=== PATIENT | male | born 1980 | race Two or more races ===

== ENCOUNTER 2023-10-22 11:08 | Outpatient (CLI) | payer SELFPAY | END 2023-10-22 23:59 | disposition home or self-care (01) | LOC: RAD 11:08 | PROVIDERS: ATTEND Family Medicine | DX: E04.1 Nontoxic single thyroid nodule (principal) | CPT/HCPCS: 76536 ==

== ENCOUNTER 2023-11-19 12:51 | Inpatient (IN) | payer MEDICAID, SELFPAY ==
[~2023-11-19] VITALS: Ht 162.6 cm; Wt 72.3 kg
[2023-11-19 13:13] LABS: BILIRUBIN,URINE NEGATIVE (Neg); CLARITY,URINE CLEAR (Clear); COLOR,URINE YELLOW (Yellow); GLUCOSE, URINE NEGATIVE (Neg); KETONES,URINE NEGATIVE (Neg); LEUKOCYTE ESTERASE ,URINE NEGATIVE (Neg); NITRITES, URINE NEGATIVE (Neg); OCCULT BLOOD,URINE NEGATIVE (Neg); PH,URINE 8.5 (4.8-8.0); PROTEIN,URINE NEGATIVE (Neg); UROBILINOGEN,URINE 0.2 E.U/dL (0.2-1.0)
[2023-11-19 13:19] LABS: UA COLLECTION TYPE CLN CATCH MIDSTREAM
[2023-11-19 13:29] LABS: BASOPHILS % (AUTO) 0.7 % (0-1); EOSINOPHILS # (AUTO) 0.2 X10'3 (0-0.9); HEMOGLOBIN 14.1 g/dl (14.0-17.9); LYMPHOCYTES # (AUTO) 2.6 X10'3 (1.1-4.8); LYMPHOCYTES % (AUTO) 40.2 % (21-51); MEAN CORPUSCULAR HEMOGLOBIN 29.9 PG (27.0-31.0); MEAN CORPUSCULAR HGB CONC 33.4 g/dL (33.0-36.5); NEUTROPHILS # (AUTO) 2.9 X10'3 (1.8-7.7)
[2023-11-19 13:31] LABS: EOSINOPHILS % (AUTO) 2.5 % (0-6); HEMATOCRIT 42.3 % (42.0-52.0); MEAN CORPUSCULAR VOLUME 89.4 FL (78-98); MEAN PLATELET VOLUME 11.4 FL (7.4-10.4); MONOCYTES # (AUTO) 0.8 X10'3 (0-0.9); MONOCYTES % (AUTO) 12.4 % (2-12); NEUTROPHILS % (AUTO) 44.2 % (42-75); PLATELET COUNT 176 X10'3 (140-440); RED BLOOD COUNT 4.73 X10'6 (4.70-6.10); RED CELL DISTRIBUTION WIDTH 14.3 % (11.5-14.5); WHITE BLOOD COUNT 6.5 X10'3 (4.5-11.0)
[2023-11-19 13:46] LABS: ALANINE AMINOTRANSFERASE 51 U/L (12-78); ALBUMIN/GLOBULIN RATIO 1.1 (1.1-1.5); ALKALINE PHOSPHATASE 81 IU/L (46-116); ANION GAP 6 (8-16); ASPARTATE AMINO TRANSFERASE 25 U/L (10-37); BILIRUBIN,TOTAL 0.5 MG/DL (0.1-1.0); BLOOD UREA NITROGEN 7 MG/DL (7-18); BUN/CREATININE RATIO 6.8 (10.0-20.0); CALCIUM 8.9 MG/DL (8.5-10.1); CHLORIDE 103 MMOL/L (99-107); CREATININE 1.03 MG/DL (0.60-1.10); GLUCOSE 93 MG/DL (70-104); LIPASE 46 U/L (16-77); POTASSIUM 3.5 MMOL/L (3.5-5.1); SODIUM 140 MMOL/L (135-145); TOTAL CARBON DIOXIDE 30.7 MMOL/L (24-32); TOTAL PROTEIN 7.7 G/DL (6.4-8.2); eCRCL 79 ML/MIN; eGFR 80 ML/MIN
[2023-11-19] MEDS ORDERED: iohexol 300mg/ml 100ml inj. ONE (15:13)
[2023-11-19] MEDS ORDERED: CLON-568 PO (16:41)
[2023-11-19] MEDS ORDERED: PARO20TA6 PO (16:41)
[2023-11-19] MEDS ORDERED: acetaminophen 325mg tablet PO PRN (17:25)
[2023-11-19] MEDS ORDERED: magnesium hydroxide 30ml (MOM) UD suspension PO PRN (17:25)
[2023-11-19] MEDS ORDERED: ondansetron/PF 4mg/2ml inj IV PRN (17:25)
[2023-11-19] MEDS ORDERED: potassium Cl 20 mEq SR tablet PO PRN ×2 (17:25)
[2023-11-19] MEDS ORDERED: mag hydrox/Alum hydrox/simeth 30ml oral suspension PO PRN (17:25)
[2023-11-19] MEDS: docusate sod 100mg capsule PO SCH (20:00)
[2023-11-19] MEDS: normal saline 1000ml 1,000 ML IV SCH (20:24)
[2023-11-19 21:00] VITALS: RESP 16; O2SAT 97
[2023-11-19 22:00] VITALS: BP 132/83; PULSE 60; RESP 16; TEMP 98.7; O2SAT 97
[2023-11-20] VITALS (22 sets, daily range): BP systolic 82–145; BP diastolic 41–97; PULSE 56–113; RESP 11–18; TEMP 98–98.9; O2SAT 95–100
[2023-11-20] MEDS: piperacillin/tazo 4.5gm/100ml 100 ML IV SCH (00:13)
[2023-11-20 06:29] LABS: BASOPHILS % (AUTO) 0.8 % (0-1); EOSINOPHILS # (AUTO) 0.2 X10'3 (0-0.9); EOSINOPHILS % (AUTO) 2.8 % (0-6); HEMATOCRIT 41.7 % (42.0-52.0); LYMPHOCYTES # (AUTO) 2.4 X10'3 (1.1-4.8); LYMPHOCYTES % (AUTO) 39.2 % (21-51); MEAN CORPUSCULAR HEMOGLOBIN 30.2 PG (27.0-31.0); MEAN CORPUSCULAR HGB CONC 33.7 g/dL (33.0-36.5); MEAN CORPUSCULAR VOLUME 89.7 FL (78-98); MEAN PLATELET VOLUME 10.8 FL (7.4-10.4); MONOCYTES # (AUTO) 0.7 X10'3 (0-0.9); MONOCYTES % (AUTO) 11.9 % (2-12); NEUTROPHILS # (AUTO) 2.7 X10'3 (1.8-7.7); NEUTROPHILS % (AUTO) 45.3 % (42-75); PLATELET COUNT 158 X10'3 (140-440); RED BLOOD COUNT 4.65 X10'6 (4.70-6.10); RED CELL DISTRIBUTION WIDTH 14.4 % (11.5-14.5)
[2023-11-20 06:36] LABS: APTT 26 SECONDS (22-32); INR 1.1 INR; PROTHROMBIN TIME 11.1 SECONDS (9.0-12.0)
[2023-11-20 07:01] LABS: ALANINE AMINOTRANSFERASE 45 U/L (12-78); ALBUMIN 3.7 G/DL (3.4-5.0); ALBUMIN/GLOBULIN RATIO 1.1 (1.1-1.5); ALKALINE PHOSPHATASE 68 IU/L (46-116); ANION GAP 6 (8-16); ASPARTATE AMINO TRANSFERASE 18 U/L (10-37); BLOOD UREA NITROGEN 10 MG/DL (7-18); BUN/CREATININE RATIO 7.6 (10.0-20.0); CALCIUM 8.8 MG/DL (8.5-10.1); CHLORIDE 104 MMOL/L (99-107); CREATININE 1.31 MG/DL (0.60-1.10); GLUCOSE 92 MG/DL (70-104); MAGNESIUM 2.2 MG/DL (1.5-2.4); PHOSPHORUS 4.5 MG/DL (2.3-4.5); POTASSIUM 3.9 MMOL/L (3.5-5.1); SODIUM 140 MMOL/L (135-145); TOTAL CARBON DIOXIDE 29.6 MMOL/L (24-32); TOTAL PROTEIN 7.1 G/DL (6.4-8.2); eCRCL 62 ML/MIN; eGFR 60 ML/MIN
[2023-11-20] MEDS ORDERED: morphine 2 MG/ML inj. syringe IV PRN ×2 (08:40→12:50)
[2023-11-20] MEDS: BUPIVAcaine 2.5mg/ml inj 50ml vial (contains preservative) ONE (10:18)
[2023-11-20] MEDS ORDERED: fentaNYL /PF 50mcg/ml 5ml ampule ONE (12:41)
[2023-11-20] MEDS ORDERED: midazolam 1 mg/ML 2ml injection ONE (12:41)
[2023-11-20] MEDS: ringers solution, lacted 1,000 ML IV SCH (12:50)
[2023-11-20] MEDS ORDERED: labetalol 20mg/4ml (5mg/ml) syringe IV PRN (12:50)
[2023-11-20] MEDS ORDERED: hydrALAZINE 20mg/ml inj. IV PRN (12:50)
[2023-11-20] MEDS ORDERED: HYDROmorphone/PF 0.2 MG/ML SYRINGE IV PRN (12:50)
[2023-11-20] MEDS ORDERED: ondansetron/PF 4mg/2ml inj IV PRN ×2 (12:50→14:30)
[2023-11-20] MEDS ORDERED: morphine 4 MG/ML inj SYRINge IV PRN (12:50)
[2023-11-20] MEDS ORDERED: proCHLORperazine 10 MG/2 ml inj IV PRN (12:50)
[2023-11-20] MEDS: famotidine/PF 10 mg/ml inj IV ONE (13:01)
[2023-11-20] MEDS ORDERED: LIDOcaine 2% (20mg/ml) 5ml vial ONE (13:16)
[2023-11-20] MEDS ORDERED: propofol inj 20 ML IV ONE (13:16)
[2023-11-20] MEDS ORDERED: rocuronium 10mg/ml inj IV ONE ×2 (13:16)
[2023-11-20] MEDS ORDERED: ceFOXitin 1000 MG inj ONE ×2 (13:25)
[2023-11-20] MEDS ORDERED: ondansetron/PF 4mg/2ml inj ONE (13:25)
[2023-11-20] MEDS ORDERED: dexamethasone sod phosphate 4mg/ml inj. ONE (13:25)
[2023-11-20] MEDS ORDERED: sugammadex 200mg/2ml injection IV ONE (14:21)
[2023-11-20] MEDS ORDERED: naloxone 0.4 mg/ml inj IV PRN (14:30)
[2023-11-20] MEDS: acetaminophen 1,000mg/100ml IV 100 ML IV ONE (14:44)
[2023-11-20] MEDS: meperidine/PF 25mg/ml syringe IV PRN (14:45)
[2023-11-20] MEDS: ketorolac trometh 30MG/ML vial 30 MG/ML VIAL IV ONE (14:46)
[2023-11-20] MEDS: HYDROmorphone/PF 0.2 MG/ML SYRINGE IV PRN (16:35)
[2023-11-20] MEDS: HYDROcodone/acetaminophen 10/325mg tab PO PRN (16:48)
[2023-11-20] MEDS: morphine 2 MG/ML inj. syringe IV PRN (19:36)
[2023-11-20] MEDS: ketorolac trometh 30MG/ML vial 30 MG/ML VIAL IV PRN (22:20)
[2023-11-21 03:40] VITALS: BP 107/63; PULSE 69; RESP 15; TEMP 98.4; O2SAT 96
[2023-11-21 06:00] VITALS: BP 110/64; PULSE 73; RESP 16; TEMP 98.5; O2SAT 99
[2023-11-21 06:57] LABS: BASOPHILS % (AUTO) 0.1 % (0-1); EOSINOPHILS % (AUTO) 0 % (0-6); HEMATOCRIT 37.7 % (42.0-52.0); HEMOGLOBIN 12.6 g/dl (14.0-17.9); LYMPHOCYTES # (AUTO) 1.2 X10'3 (1.1-4.8); LYMPHOCYTES % (AUTO) 11.6 % (21-51); MEAN CORPUSCULAR HEMOGLOBIN 30.2 PG (27.0-31.0); MEAN CORPUSCULAR HGB CONC 33.5 g/dL (33.0-36.5); MEAN CORPUSCULAR VOLUME 90.1 FL (78-98); MONOCYTES # (AUTO) 0.8 X10'3 (0-0.9); MONOCYTES % (AUTO) 8.1 % (2-12); NEUTROPHILS # (AUTO) 8.3 X10'3 (1.8-7.7); NEUTROPHILS % (AUTO) 80.2 % (42-75); PLATELET COUNT 162 X10'3 (140-440); RED BLOOD COUNT 4.18 X10'6 (4.70-6.10); WHITE BLOOD COUNT 10.3 X10'3 (4.5-11.0)
[2023-11-21 07:40] LABS: ALANINE AMINOTRANSFERASE 48 U/L (12-78); ALBUMIN 3.3 G/DL (3.4-5.0); ALKALINE PHOSPHATASE 55 IU/L (46-116); ANION GAP 5 (8-16); ASPARTATE AMINO TRANSFERASE 28 U/L (10-37); BILIRUBIN,TOTAL 0.7 MG/DL (0.1-1.0); BLOOD UREA NITROGEN 9 MG/DL (7-18); BUN/CREATININE RATIO 7.8 (10.0-20.0); CALCIUM 8.3 MG/DL (8.5-10.1); CHLORIDE 107 MMOL/L (99-107); CREATININE 1.16 MG/DL (0.60-1.10); GLUCOSE 127 MG/DL (70-104); PHOSPHORUS 3.8 MG/DL (2.3-4.5); POTASSIUM 4.7 MMOL/L (3.5-5.1); SODIUM 140 MMOL/L (135-145); TOTAL CARBON DIOXIDE 27.8 MMOL/L (24-32); TOTAL PROTEIN 6.7 G/DL (6.4-8.2); eCRCL 70 ML/MIN; eGFR 69 ML/MIN
[2023-11-21 08:00] VITALS: RESP 16
[2023-11-21 18:40] VITALS: BP 111/57; PULSE 83; RESP 18; TEMP 97.9; O2SAT 100
[2023-11-21 19:00] VITALS: BP 111/57; PULSE 83; RESP 18; TEMP 97.9; O2SAT 100
[2023-11-22 05:55] LABS: BASOPHILS # (AUTO) 0.1 X10'3 (0-0.2); BASOPHILS % (AUTO) 0.7 % (0-1); EOSINOPHILS # (AUTO) 0.1 X10'3 (0-0.9); EOSINOPHILS % (AUTO) 0.8 % (0-6); HEMATOCRIT 36.5 % (42.0-52.0); HEMOGLOBIN 12.2 g/dl (14.0-17.9); LYMPHOCYTES # (AUTO) 3.5 X10'3 (1.1-4.8); LYMPHOCYTES % (AUTO) 43.3 % (21-51); MEAN CORPUSCULAR HGB CONC 33.5 g/dL (33.0-36.5); MEAN CORPUSCULAR VOLUME 89.5 FL (78-98); MEAN PLATELET VOLUME 10.7 FL (7.4-10.4); MONOCYTES # (AUTO) 0.8 X10'3 (0-0.9); MONOCYTES % (AUTO) 10.2 % (2-12); NEUTROPHILS # (AUTO) 3.6 X10'3 (1.8-7.7); PLATELET COUNT 145 X10'3 (140-440); RED BLOOD COUNT 4.07 X10'6 (4.70-6.10); RED CELL DISTRIBUTION WIDTH 14.5 % (11.5-14.5)
[2023-11-22 06:00] VITALS: BP 97/63; PULSE 52; RESP 16; TEMP 98; O2SAT 98
[2023-11-22 06:21] LABS: ALANINE AMINOTRANSFERASE 38 U/L (12-78); ALBUMIN 3.3 G/DL (3.4-5.0); ALBUMIN/GLOBULIN RATIO 1.1 (1.1-1.5); ALKALINE PHOSPHATASE 48 IU/L (46-116); ANION GAP 5 (8-16); ASPARTATE AMINO TRANSFERASE 31 U/L (10-37); BILIRUBIN,TOTAL 0.7 MG/DL (0.1-1.0); BLOOD UREA NITROGEN 7 MG/DL (7-18); BUN/CREATININE RATIO 6.4 (10.0-20.0); CALCIUM 8.4 MG/DL (8.5-10.1); CHLORIDE 109 MMOL/L (99-107); GLUCOSE 93 MG/DL (70-104); PHOSPHORUS 3.2 MG/DL (2.3-4.5); POTASSIUM 3.8 MMOL/L (3.5-5.1); SODIUM 144 MMOL/L (135-145); TOTAL CARBON DIOXIDE 30.5 MMOL/L (24-32); TOTAL PROTEIN 6.4 G/DL (6.4-8.2); eCRCL 74 ML/MIN; eGFR 74 ML/MIN
[2023-11-22 09:40] VITALS: RESP 16
[2023-11-22 10:17] VITALS: RESP 14
[2023-11-22 10:18] VITALS: RESP 18
[2023-11-22] MEDS ORDERED: AMOX-419 PO (10:30)
== END 2023-11-22 13:00 | disposition home or self-care (01) | DRG 234 ==
LOC: ER 12:51 → SUR 3N 17:32 → UNDOADMIN 17:32 → ED HOLD 17:32 → SUR 3N 20:50 → ED HOLD 20:50 → SUR 3N 11-20 14:15 → PACU 11-20 14:15 → SUR 3N 11-20 16:17 → UNDODISIN 11-22 13:00
PROVIDERS: ADMIT Registered Nurse Psychiatric/Mental Health; ATTEND Registered Nurse Psychiatric/Mental Health
PROC: BW211ZZ Computerized Tomography (CT Scan) of Abdomen and Pelvis using Low Osmolar Contrast (ICD-10-PCS; 2023-11-19)
PROC: 8E0W4CZ Robotic Assisted Procedure of Trunk Region, Percutaneous Endoscopic Approach (ICD-10-PCS; 2023-11-20)
PROC: 0DTJ4ZZ Resection of Appendix, Percutaneous Endoscopic Approach (ICD-10-PCS; principal; 2023-11-20 12:55)
DX: K35.30 Acute appendicitis with localized peritonitis, without perforation or gangrene (principal); N17.9 Acute kidney failure, unspecified; F32.A Depression, unspecified; F41.9 Anxiety disorder, unspecified
CPT/HCPCS: 36415; 74177; 80053; 81003; 82948; 83690; 83735; 84100; 85025; 85610; 85730; 87081; 99285; A4215; A4314; A4338; A4618; A6212; A6449; G0378; J0131; J0694; J1100; J1885; J2175; J2250; J2270; J2405; J2543; J2704; J3010; J3490; J7030; Q9967